=== PATIENT | male | born 1945 | race Caucasian/White ===

== ENCOUNTER 2016-12-26 00:42 | Day surgery (SDC) | payer OTHER ==
[~2016-12-26] VITALS: Ht 175.3 cm; Wt 66.9 kg
[2016-12-26] VITALS (10 sets, daily range): BP systolic 130–180; BP diastolic 61–84; PULSE 56–64; RESP 16–18; O2SAT 95–98
[~2016-12-26 00:42] MED LIST: AMLO10TA3 PO; ATOR80TA PO; CINN500C14 PO; CLOP75TA28 PO; FERR325C PO; GLUC1TAB20 PO; INSU100I18 SUBQ; INSU100V7 SUBQ; ISOS30TA4 PO; LOSA100T29 PO; [UNRECOGNIZED DRUG - CODE] PO
[2016-12-26 12:16] LABS: BASOPHILS % (AUTO) 0.3 % (0-3); EOSINOPHILS % (AUTO) 3.5 % (0-5); MONOCYTES % (AUTO) 7.1 % (4-12); Mean Corpuscular Hemoglobin 31.2 pg (27.0-35.0); Mean Corpuscular Volume 92.7 fL (81-100); NEUTROPHILS % (AUTO) 60.9 % (40-74); Platelet Count 289 bil/L (150-400)
[2016-12-26 12:29] LABS: INR 0.95 ratio
[2016-12-26] MEDS ORDERED: 0.9% Sodium Chloride 250 ML ONE (14:52)
[2016-12-26] MEDS ORDERED: Heparin 5,000 Units/500 mL NS Premix IV ONE (14:52)
[2016-12-26] MEDS ORDERED: Vancomycin 1,000 mg Inj ONE (14:53)
[2016-12-26] MEDS ORDERED: Bupivacaine-MPF 0.5% 30 mL Inj ONE (14:53)
[2016-12-26] MEDS ORDERED: Vancomycin 1,000mg/200 mL NS IV ONE (14:56)
[2016-12-26] MEDS ORDERED: fentaNYL-PF 50 mCg/mL 2 mL Inj ONE (15:44)
[2016-12-26] MEDS: 0.9% Sodium Chloride 1,000 ML IV SCH (16:43)
[2016-12-26] MEDS ORDERED: Ondansetron 2 mg/mL 2 mL Inj IVPUSH PRN (16:45)
[2016-12-26] MEDS ORDERED: HYDROcodone-APAP 5-325 mg Tablet PO PRN (16:45)
--- NOTE | 2016-12-26 18:01 | DRSVH ---
PROCEDURE: X-RAY CHEST ONE VIEW, PORTABLE ([id number]) INDICATIONS: For new leads placed TECHNIQUE: One view of the chest was acquired. COMPARISON: [facility], , CHEST 2 VIEW, 10/19/2016, 8:34. FINDINGS: Surgical changes and devices: Left-sided pacer. Lungs and pleura: No pleural effusions or pneumothorax. Lungs are clear. Mediastinum: Mediastinal contours appear normal. Heart size is normal. Bones and chest wall: No suspicious bony lesions. Overlying soft tissues appear unremarkable. IMPRESSION: No acute process. Dictated by: Arik Lucia M.D. on 12/26/2016 at 17:59 Approved by: Arik Lucia M.D. on 12/26/2016 at 18:00
--- NOTE | 2016-12-26 20:06 | NUR ---
Pt transferred to PCC room 2026, VSS, Lt upper chest dressing CDI with no bleeding/hematoma noted. Report and pt handoff given to Larisa CHAPMAN.
[2016-12-26] MEDS ORDERED: Glucose 40% Oral Gel 15 Gm Tube PO PRN (21:15)
[2016-12-26] MEDS: Insulin LISPRO 300 Unit/3 mL Inj SUBQ SCH (21:28)
[2016-12-26 22:14] LABS: APPEARANCE,URINE CLEAR (CLEAR,HAZY); COLOR,URINE STRAW (YELLOW); OCCULT BLOOD,URINE NEGATIVE (NEGATIVE); PH,URINE 7.5 (5.0-8.0); UROBILINOGEN,URINE NORMAL (NORMAL)
--- NOTE | 2016-12-27 02:24 | OP ---
[address] [address] OPERATIVE REPORT PATIENT: GENE HARRISON : 1945 MR#: [id number] ADMIT: 12/26/2016 JOB ID: [id number] DATE OF SURGERY: 12/26/2016 PREOPERATIVE DIAGNOSIS(ES): Mobitz II AV block. POSTOPERATIVE DIAGNOSIS(ES): Mobitz II AV block. PROCEDURES PERFORMED: 1. Dual-chamber pacemaker implantation. 2. Fluoroscopy. SURGEON: Ady Rizo MD. CLAM GROWER: Safia . IMPLANTED DEVICES: 1. [employer] pulse generator, model [id number], serial #[id number]. 2. Right atrial lead [employer], LPA 1200M, 52 cm, serial #[id number]. 3. RV lead [employer], LPA 1200M, 58 cm, serial #[id number]. ANESTHESIA: Bolus dosing of Versed and fentanyl . INDICATION: The patient is a pleasant 71-year-old man with recently diagnosed atrial fibrillation, and now Mobitz II AV block as well. After discussion of the risks and benefits of pacemaker implantation, he opted to proceed. PROCEDURAL DESCRIPTION: Following informed signed consent, the patient was taken to the EP Laboratory in where he was prepped and draped in usual sterile fashion. The left infraclavicular region was infiltrated with 40 cc of a 50/50 mixture of bupivacaine and lidocaine. Once adequate anesthesia had been achieved, a 3 cm transverse . Dissection was carried down to the pectoralis fascia and a pocket was then fashioned using a combination of electrocautery and blunt dissection. Once adequate hemostasis had been achieved, access was gotten into the left axillary vein with a micropuncture needle to deploy two 0.035 mm J guidewires. Over the first of these, an 8-Australian tear-away sheath was advanced. and ultimately the RV apex. The lead was affixed in position using its associated active fixation screw. It was connected to the external analyzer. The R waves, impedance, capture was checked to 10 V and stimulation. Attention was now paid to atrial lead. Over the previously deployed J guidewire, another 8-Australian tear-away sheath was advanced. Once lead was advanced to the right atrial appendage. It was affixed in position using its associated active fixation screw. The lead was connected to external analyzer P waves, impedance, capture threshold was checked to 10 V and there was no evidence of diaphragmatic stimulation. Once the position and redundancy of both leads were confirmed with multiple fluoroscopic views, the leads were anchored to the prepectoral fascia using their associated anchoring sleeves and two heavy Ethibond sutures. The pocket was then copiously irrigated with antibiotic solution. Leads were connected to a generator. Leads were placed in the pocket. to the floor of the pocket using 1-0 Ti-Cron suture. The incision was then closed with running layers of absorbable suture. The wound was dressed with skin adhesive and a small dressing. At the end of the procedure, the needle, sponge, and instrument counts were reported correct. COMPLICATIONS: None. ESTIMATED BLOOD LOSS: Negligible. DEVICE MEASURED DATA: 1. Right atrial lead 4.2 mV, 450 ohms, 0.5 V at 0.4 msec. 2. RV lead greater than 12 mV, 450 ohms, 0.75 V at 0.4 msec. FINAL PROGRAMINGS: DDDR 60-130 beats per minute. IMPRESSION: Successful dual-chamber pacemaker implantation. PLAN: 1. Stat portable chest x-ray. 2. PA and lateral chest x-ray. 3. Ancef through tomorrow. 4. Doxycycline x7 days starting tomorrow. 5. Wound check in one week. , Ady Rizo MD, electrophysiology attending was present for and supervised/performed all aspects of this procedure.
[2016-12-27] MEDS: 0.9% Sodium Chloride 1,000 ML IV SCH (02:43)
[2016-12-27 03:13] VITALS: BP 169/66; PULSE 63; RESP 17; O2SAT 96
[2016-12-27] MEDS ORDERED: Vancomycin Inj 1,000 MG in IV Premix 1 EACH IV ONE (04:45)
--- NOTE | 2016-12-27 04:48 | NUR ---
Cardiac: Pacer site asymptomatic. Left arm in slight overnight, reviewed with pt left arm precautions. Tele A paced 60s. pt denies any pain. BP HTN , SBP 160s. Pt sleeping intermittently. Care ongoing.
[2016-12-27] MEDS ORDERED: Isosorbide Mononitrate 30 mg ER24 Tablet PO SCH (07:30)
--- NOTE | 2016-12-27 07:30 | NUR ---
Pacer site Pacer site covered with gauze. Pt denies chest pain. All pulses palpable. Care continues.
[2016-12-27] MEDS ORDERED: Omega-3 Fatty Acids 1,000 mg Capsule PO SCH (08:30)
[2016-12-27 08:35] VITALS: BP 181/89; PULSE 60; RESP 18; O2SAT 99
[2016-12-27 08:44] VITALS: BP 169/88
--- NOTE | 2016-12-27 09:08 | PCM.DIMED ---
Discharge Instructions Date of Service Dec 27, 2016 Dates of Hospitalization Discharge Diagnosis Discharge Diagnosis Mobitz II, 2nd Degree AV Block Paroxysmal AFib Diabetes Diet Heart Healthy, Diabetic Activity Other (Do not extend left elbow high above shoulder for one month. Do not lift , push or pull more than 10 lbs with the left arm for one month.) Call your provider Fever or Chills, Bleeding, Excessive diarrhea Patient Instructions Follow-up in: 1 week Mid-level Provider (F9): Ananth March PA-C Follow-up with Mid-level in: 6 weeks Ananth March PA-C Dec 27, 2016 09:08
[2016-12-27] MEDS ORDERED: CEPH500C PO (09:11)
[2016-12-27 09:18] VITALS: BP 174/82; PULSE 62; RESP 17; O2SAT 97
--- NOTE | 2016-12-27 10:02 | DIS ---
[address] [address] DISCHARGE SUMMARY PATIENT: GENE HARRISON : 1945 MR#: [id number] ADMIT: 12/26/2016 JOB ID: [id number] DIS: 12/27/2016 REASON FOR ADMISSION: Pacemaker implant. CHIEF COMPLAINT: Bradycardia and fatigue. BRIEF HISTORY: The patient is a pleasant, 71-year-old man, with preserved LV function, who recently had a stroke and now has newly diagnosed paroxysmal atrial fibrillation. Monitoring of his ECG showed intermittent periods of Mobitz-II AV block in the middle of the day, and he was not on any AV masha blocking agents. He has had fatigue and bradycardia. His ECG shows sinus rhythm with left anterior fascicular block and intermittent Mobitz-II AV block. He was advised of the recommendation for a pacemaker to prevent syncope and was admitted for that purpose. COURSE IN HOSPITAL: The patient was admitted to the [facility] and taken to the optical laboratory manager, where he received a dual-chamber cardiac pacemaker without incident. He was taken back to the optical laboratory manager for recovery from sedation and then transferred up to the [facility] for overnight observation and telemetry monitoring, and he did well. In the morning, his pacemaker site was closed and dry, and there was no hematoma. Device testing showed excellent capture and sensing thresholds for both leads and 74% pacing. Chest x-ray showed good lead positions and no pneumothorax. He felt well for discharge home, had no complaints of lightheadedness, dyspnea or excessive pain. DISPOSITION: The patient is discharged home in good condition with a followup appointment at the [facility] office in one week. He was advised to continue his heart healthy and diabetic diet, and to take medications as prescribed. He may shower tomorrow. He was asked not to extend his left elbow above his shoulder for one month, and not to lift, push or pull more than 10 pounds with the left arm for one month. DISCHARGE MEDICATIONS: 1. Cephalexin 500 mg b.i.d. for one week. 2. Amlodipine 10 mg daily. 3. Atorvastatin 80 mg daily. 4. Cinnamon bark 1000 mg b.i.d. 5. Clopidogrel 75 mg daily. 6. Ferrous sulfate 325 mg daily. 7. Glucosamine chondroitin tablets, 1 b.i.d. 8. Insulin glargine 22 units subcu as directed. 9. Insulin lispro 4 units subcu as directed. 10. Isosorbide mononitrate ER 30 mg daily. 11. Losartan 100 mg daily. 12. Willis-3 fish oil soft gel 1 g b.i.d. FINAL DIAGNOSES: 1. Intermittent Mobitz-II atrioventricular block. 2. Fatigue. 3. Diabetes mellitus. 4. Paroxysmal atrial fibrillation.
[2016-12-27] MEDS: Insulin LISPRO 300 Unit/3 mL Inj SUBQ SCH (10:14)
[2016-12-27 10:34] VITALS: PULSE 62
--- NOTE | 2016-12-27 10:37 | DRSVH ---
PROCEDURE: X-RAY CHEST, TWO VIEWS ([id number]) INDICATIONS: For new lead placement TECHNIQUE: 2 views of the chest were acquired. COMPARISON: None. FINDINGS: Surgical changes and devices: Stable left pacer. Lungs and pleura: No pleural effusions or pneumothorax. Lungs are clear. Mediastinum: Mediastinal contours are normal. Heart size is normal. Bones and chest wall: No suspicious bony abnormalities. Soft tissues appear unremarkable. IMPRESSION: Stable chest post pacer placement. Dictated by: Andrew Quinteros [facility] Interpreted: Sy Nagel MD on 12/27/2016 at 10:36 Transcribed by: BLAS on 12/27/2016 at 10:36 Approved by: Sy Nagel M.D. on 12/27/2016 at 15:40
--- NOTE | 2016-12-27 12:37 | NUR ---
Discharge Pt discharged at approximately 1245 to home with . Pt given educational material for Pacemaker and Pacemaker Booklet. Pacemaker ID card with instructions given to pt. New prescription for Cephalexin sent to Pharmacy per MD. Next dose to be taken for all medications clearly written and dated, Bilateral IVs DC with catheter intact, Tele DCd monitor worker notified. Patient acknowledged and understood all information. Pt left with all personal belongings. Escorted by LIGHTER CAPTAIN in wheelchair to door.
== END 2016-12-27 12:40 | disposition home or self-care (01) ==
LOC: SOUO 00:42 → PCC 19:43 → SOUO 12-27 12:40
PROVIDERS: ATTEND Internal Medicine Cardiovascular Disease
DX: I44.1 Atrioventricular block, second degree (principal); I48.0 Paroxysmal atrial fibrillation; I69.322 Dysarthria following cerebral infarction; I44.4 Left anterior fascicular block; E11.9 Type 2 diabetes mellitus without complications; N40.1 Benign prostatic hyperplasia with lower urinary tract symptoms; Z87.440 Personal history of urinary (tract) infections; Z79.4 Long term (current) use of insulin; Z79.02 Long term (current) use of antithrombotics/antiplatelets
CPT/HCPCS: 33208; 36415; 71010; 71020; 80048; 81000; 85025; 85610; 93005; 99152; 99153; C1769; C1785; C1892; C1898; J1644; J1815; J2250; J3010; J3370; J7050

== ENCOUNTER 2017-03-05 08:35 | Day surgery (SDC) | payer OTHER ==
[~2017-03-05] VITALS: Ht 175.3 cm; Wt 73.5 kg
[~2017-03-05 08:35] MED LIST changes: +0.9% Sodium Chloride 1,000 ML IV SCH; +Sodium Chloride LOK Flush 10 mL Syringe IV PRN; +WARF5TAB7 PO; +fentaNYL-PF 50 mCg/mL 2 mL Inj IVPUSH PRN
[2017-03-05 08:52] VITALS: BP 166/61; PULSE 67; RESP 16; O2SAT 97
--- NOTE | 2017-03-05 10:54 | PCM.ENDEGD ---
EGD Date of Service: Mar 05, 2017 Physician Mauro Thompson MD Pre Procedure Diagnosis: Hematemesis Post Procedure Dx & Findings: Erosive gastropathy possible Jackson's duodenitis Procedure Esophagogastroduodenoscopy PROCEDURE IN DETAIL: After proper sedation, Olympus video endoscope was inserted into patient's mouth and esophagus was successfully intubated. Scope introduced esophagus. Esophagus showed normal shiny whitish mucosa consistent with squamous cell component. Z line was at approximately 40 cm from the incisors. There was about 2-3 cm of irregular Z line with salmon-colored mucosa. Narrow banding done. No ulcer mass erosion nodule noted. Scope further advanced to the stomach. The entire stomach had some atrophy as well as edema redness and speck of dry old blood. Cardia fundus body antrum pylorus were all visualized. Retroflexion was done. Stomach was easily inflated and deflatable using air. Scope further events to the distal duodenum. Duodenum revealed normal villous structures with normal appearing folds without any mass ulcer erosion. However in the duodenal bulb and the first pass, some evidence of inflammation and edema was noted. Patient started struggling and grabbing for the scope. Therefore biopsies could not be safely taken. Impression Possible Jackson's Diffuse erosive gastropathy Duodenitis Recommendation Stop NSAIDs PPI EGD with anesthesia Presedation Assessment Risks and Benefits Informed consent was obtained from the patient after all risks and benefits including but not limited to drug reaction, infection, pain, bleeding, perforation, as well as alternatives were discussed. Patient monitoring Continuous pulse oximetry, cardiac monitoring, blood pressure monitoring, IV access, and oxygen at 2L per nasal cannula. Periprocedural Fentanyl: Fentanyl 150mcg Incrementally Midazolam: Midazolam 7mg Incrementally Complications There were no periprocedural complications identified. Post Procedure Plan Post Procedure Recommendations 1. Restrict activities today. 2. Resume normal activities in the morning. 3. Resume medications. 4. GERD behavioral modification: - Avoid fatty, acidic, spicy, large meals - Do not lie down after meals - Do not eat or drink anything for at least 2 1/2 hours before going to bed at night - Discontinue tobacco and alcohol - Decrease or avoid caffeine - Avoid chocolate and mints - Decrease weight - Avoid aspirin and non steroidal anti-inflammatory agents (NSAID) such as Aleve, Advil, Mobic, Naproxen, Ibuprofen, etc 5. Add proton pump inhibitor. Take 30 minutes before 1st meal of the day. 6. Patient informed of normal post procedure side effects as bloating, drowsiness, blood streaking in the stool 7. If gastric biopsy reveal H.pylori, continue with appropriate treatment 8. If small bowel biopsy reveals celiac, continue with appropriate treatment 9. Please don't hesitate to call me with any questions Mauro Thompson MD Mar 05, 2017 10:53
--- NOTE | 2017-03-05 10:56 | PCM.ENDCOL ---
Colonoscopy Date of Service: Mar 05, 2017 Physician Mauro Thompson MD Pre Procedure Diagnosis: Screening Post Procedure Dx & Findings: Polyp hemorrhoids diverticula Procedure Colonoscopy PROCEDURE IN DETAIL: Prep adequate Withdrawal time 15 minutes After unremarkable rectal examination the Olympus video colonoscope was inserted patient's anal canal and was advanced to cecum. Landmarks were identified including the ileocecal valve and appendiceal orifice. Scope was withdrawn systematically. Visualized colonic mucosa showed healthy shiny mucosa with normal healthy-appearing vasculature. In the ascending colon, there was a 1 mm polyp which was removed completely using cold forceps. In the transverse colon there were 2 polyps. These are 2 mm in size and they were both removed completely using cold snare. In the descending colon there was a 2 mm polyp which was removed completely using cold snare. In the sigmoid colon, there was a 3 mm polyp which was removed completely using cold snare. In the sigmoid colon, there were several small diverticuli. In the rectum retroflexion was done which showed hemorrhoids. Anal canal was inspected carefully on the way out and hemorrhoids noted. Impression Polyps 5 status post complete removal Diverticuli Hemorrhoids Recommendation Repeat colonoscopy 3 years Diverticular diet Presedation Assessment Risks and Benefits Informed consent was obtained from the patient after all risks and benefits including but not limited to drug reaction, infection, pain, bleeding, perforation, as well as alternatives were discussed. Patient monitoring Continuous pulse oximetry, cardiac monitoring, blood pressure monitoring, IV access, and oxygen at 2L per nasal cannula. Complications There were no periprocedural complications identified. Post Procedure Plan Post Procedure Recommendations 1. Restrict activities today. 2. Resume normal activities in the morning. 3. Resume medications. 4. Patient informed of normal post procedure side effects as bloating, drowsiness, blood streaking in the stool. 5. average risk CRCS. If colon polyps come back as: -Hyperplastic- can repeat colonoscopy in 10 years -Tubular adenoma- repeat colonoscopy in 5 years -Tubulovillous/villous adenoma- repeat colonoscopy in 3 years -If any dysplasia- return to clinic as soon as possible 6. Please don't hesitate to call me with any questions. Mauro Thompson MD Mar 05, 2017 10:56
[2017-03-05 10:57] VITALS: BP 121/57; PULSE 60; RESP 17; O2SAT 97
[2017-03-05 11:05] VITALS: BP 113/58; PULSE 61; RESP 17; O2SAT 97
[2017-03-05 11:15] VITALS: BP 113/58; PULSE 60; RESP 15; O2SAT 96
== END 2017-03-05 23:59 | disposition home or self-care (01) ==
LOC: END 08:35
PROVIDERS: ATTEND Internal Medicine
DX: Z12.11 Encounter for screening for malignant neoplasm of colon (principal); K57.30 Diverticulosis of large intestine without perforation or abscess without bleeding; K64.8 Other hemorrhoids; K31.9 Disease of stomach and duodenum, unspecified; K29.80 Duodenitis without bleeding; K21.9 Gastro-esophageal reflux disease without esophagitis; D64.9 Anemia, unspecified; I10 Essential (primary) hypertension; I48.0 Paroxysmal atrial fibrillation; Z95.0 Presence of cardiac pacemaker; I44.1 Atrioventricular block, second degree; E11.9 Type 2 diabetes mellitus without complications; N40.1 Benign prostatic hyperplasia with lower urinary tract symptoms; R33.9 Retention of urine, unspecified; Z79.4 Long term (current) use of insulin; Z79.01 Long term (current) use of anticoagulants; Z79.02 Long term (current) use of antithrombotics/antiplatelets
CPT/HCPCS: 43235; 45380; 45385; 99153; G0500; J2250; J3010; J7030

== ENCOUNTER → 2017-04-26 | Day surgery (SDC) | payer OTHER ==
[~2017-04-26] VITALS: Ht 175.3 cm; Wt 74.8 kg
[~2017-04-26] MED LIST changes: -0.9% Sodium Chloride 1,000 ML IV SCH; +ASCO500C6 PO; +CARV3.122 PO; +CHOL200047 PO; -CLOP75TA28 PO; +CYAN500 SQ; +Ketamine 10 mg/mL 20 mL Inj ONE; +Lactated Ringer's 1,000 ML IV ONE; +Lactated Ringer's 1,000 ML IV SCH; +MetoCLOpramide 5 mg/mL 2 mL Inj IVPUSH PRN; +Ondansetron 2 mg/mL 2 mL Inj IVPUSH PRN; +Propofol 10,000 mCg/mL 20 mL Inj ONE; -Sodium Chloride LOK Flush 10 mL Syringe IV PRN; -fentaNYL-PF 50 mCg/mL 2 mL Inj IVPUSH PRN
--- NOTE | 2017-04-26 07:41 | PCM.HPANE ---
Patient Data Surgeon Admitting Provider: Attending Provider:Mauro Thompson MD Primary Care Physician:Nruia Whelan DO Other Provider:Charlette Love Anesthesia Reason for Visit Gastrointestinal Hemorrhage Ht/WT & BMI Body Mass Index Allergies Coded Allergies: atenolol (Verified Allergy, Unknown, 03/02/17) ciprofloxacin (Verified Allergy, Unknown, 03/02/17) Past Anesthesia History Anesthesia History: Denies:: Abnormal Airway, Anesthesia Reactions, Difficult Intubation, Fam Anesthesia Reaction, Fam Malignant Hypertherm, Malignant Hyperthermia Diabetes History Hx Diabetes?: Yes Glycemic Control: Insulin Dependent Current Bedside Blood Glucose: 132 MRSA MRSA: No Medications Hypertension Medication: Yes Home Meds Incl Beta Gris: No Reported Medications Cholecalciferol (Vitamin D3) (Vitamin D3)2,000 Unit Capsule2,000 Unit PO DAILY 04/26/17 Carvedilol 3.125 Mg Tablet3.125 Mg PO BID Ref 0 04/26/17 Ascorbic Acid (Vitamin C)500 Mg Capsule.er500 Mg PO DAILY 04/24/17 Cinnamon Bark (Cinnamon)500 Mg Capsule1,000 Mg PO DAILY 04/24/17 Cyanocobalamin (Vitamin B12)500 Mcg Tablet1,000 Mcg SQ Monthly 04/24/17 Warfarin Sodium 5 Mg Tablet5 Mg PO DAILY 30 Days Ref 0 03/02/17 Losartan Potassium 100 Mg Zrohzn998 Mg PO DAILY 12/25/16 Insulin Glargine (Lantus U100 Insulin Vial)100 Unit/Ml Vial22 Unit SUBQ DIRECTED #1 VIAL Ref 0 12/25/16 Isosorbide MN ER 30 Mg Tab.er.24h30 Mg PO DAILY 12/25/16 Ferrous Sulfate (Iron)325 Mg Capsule.erUnknown Dose PO DAILY 12/25/16 Insulin Lispro (HumaLOG U100 Insulin Pen)100 Unit/1 Ml Insuln.pen4 Unit SUBQ DIRECTED #1 PENINJ Ref 0 Blood Sugar Lispro Correction <151 0 units 151-175 1 unit 176-200 2 units 201-225 3 units 226-250 4 units 251-275 5 units 276-300 6 units 301-325 7 units 326-350 8 units 351-375 9 units 376-400 10 units >400 12 units Check blood sugars before meals and at bedtime. Use correction factor only before meals. 12/25/16 Gluc Ary/Chondro Ray A/Vit C/Mn (Glucosamine Chondroitin Tab)1 Each Tablet1,000 Mg PO BID 12/25/16 Stevinson-3/Dha/Epa/Fish Oil (Fish Oil 1,000 mg Softgel)1,000 Mg (120 Mg-180 Mg) Capsule1,000 Mg PO BID 12/25/16 Atorvastatin (Lipitor)80 Mg Gsotyv19 Mg PO DAILY Ref 0 12/25/16 Amlodipine 10 Mg Osgels52 Mg PO DAILY Ref 0 12/25/16 History History of ENT Problems?: No HEENT History: Denies:: Abnormal Airway Cataracts Difficult Intubation Dysphagia Glaucoma Hearing Problem Sinus Problem TMJ Denture Type: None Teeth Condition: Within Normal Limits Hx of Heart Problems?: Yes Cardiovascular History: Positive for:: AICD Atrial Fibrillation Chest Pain Hypertension Irregular Heartbeat (SB w/ mobitz type II) Pacemaker Hx of Respiratory Problem?: Yes Respiratory History: Positive for:: COPD Cough Pneumonia Hx Neurologic Problems?: Yes Neurological History: Positive for:: CVA Hx of GI Problems?: Yes Hx of Problems?: No Hx Musculoskeletal Problems?: No Hx of Psycho/Social Problems?: No Hx Surgeries?: Yes (bladder, multiple) Hx Any Other Health Problems?: Yes Other History: Positive for:: Hospitalization History Blood Transfusions: Denies:: Blood Transfusions Hx Diabetes: Yes Hx Alcohol Use: NoHx Substance Use: Yes (marijuana)Have You Smoked inLast 12 mo: No Stop/Bang Treated for Sleep Apnea?: No Do You Have a CPAP Machine?: No SIMIN Risk Assessment: Low Risk, <3 Yes Risk Assessment Category Category 1A: Patient has history of documented sleep apnea, and HAS NOT received any narcotic, sedative or anesthesia administration during this stay. Category 1B: Patient has history of documented sleep apnea, and HAS received any narcotic , sedative or anesthesia administration during this stay Category 2: Patient has SUSPECTED Obstructive Sleep Apnea, and HAS received any narcotic , sedative or anesthesia administration during this stay. Category 3: Patient has SUSPECTED Obstructive Sleep Apnea and HAS NOT received narcotic, sedative or anesthesia administration during this stay. Category 4: Outpatient in Procedural Areas with known sleep apnea or who screen positive for High Risk via the STOP/BANG questionnaire. Exam Exam General Appearance: Alert, Oriented X3, Cooperative, No Acute Distress HEENT/AIRWAY: MP 2 Lungs: Clear to Auscultation, Normal Air Movement Heart: Exam Unremarkable, Regular Rate/Rhythm, No Murmurs/Rubs/Gallops Plan Impression Patient chart reviewed, patient interviewed and anesthestic plan with risks, benefits, and alternatives discussed, and informed consent obtained. ASA Physical Status: ASA2 Mod Systemic Disease Anesthetic Plan: MAC Bene/Risks/Altern/Consents: Yes HP Complete Prior to Induction: Yes Colt Gu MD Apr 26, 2017 07:41
[2017-04-26 10:17] VITALS: BP 156/80; PULSE 60; RESP 16; O2SAT 98
--- NOTE | 2017-04-26 11:25 | PCM.ENDEGD ---
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 Scope introduced esophagus. Esophagus showed normal shiny whitish mucosa consistent with squamous cell component. Z line was at 40 cm from the incisors. There was 2 cm length of salmon-colored mucosa. Irregular Z line consistent with Jackson's esophagus. Inflammation noted as well. 4 quadrant biopsies obtained every 2 cm for Jackson 's protocol. Narrow banding done. Biopsy of the esophagitis done and placed in the same bottle as the Jackson's. No mass erosion nodule ulcer noted. 3 cm hiatal hernia noted. No further advanced to the stomach. Stomach showed irritation edema and redness consistent with gastritis with erosion. There was one 1 cm superficial ulcer. Biopsies were done and all the sites. They were placed in the same bottle.. Cardia fundus body antrum pylorus were all visualized. Retroflexion was done. Stomach was easily inflated and deflatable using air. Scope further advanced to the distal duodenum. Duodenum revealed normal villous structures with normal appearing folds however there were a few 1 mm or 2 mm isolated redness consistent with isolated duodenitis. Biopsies were done. 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 Presedation Assessment Risks and Benefits Informed consent was obtained from the patient after all risks and benefits including but not limited to drug reaction, infection, pain, bleeding, perforation, as well as alternatives were discussed. Patient monitoring Continuous pulse oximetry, cardiac monitoring, blood pressure monitoring, IV access, and oxygen at 2L per nasal cannula. Complications There were no periprocedural complications identified. Post Procedure Plan Post Procedure Recommendations 1. Restrict activities today. 2. Resume normal activities in the morning. 3. Resume medications. 4. GERD behavioral modification: - Avoid fatty, acidic, spicy, large meals - Do not lie down after meals - Do not eat or drink anything for at least 2 1/2 hours before going to bed at night - Discontinue tobacco and alcohol - Decrease or avoid caffeine - Avoid chocolate and mints - Decrease weight - Avoid aspirin and non steroidal anti-inflammatory agents (NSAID) such as Aleve, Advil, Mobic, Naproxen, Ibuprofen, etc 5. Add proton pump inhibitor. Take 30 minutes before 1st meal of the day. 6. Patient informed of normal post procedure side effects as bloating, drowsiness, blood streaking in the stool 7. If gastric biopsy reveal H.pylori, continue with appropriate treatment 8. If small bowel biopsy reveals celiac, continue with appropriate treatment 9. Please don't hesitate to call me with any questions Muaro Thompson MD Apr 26, 2017 11:25
[2017-04-26 11:28] VITALS: BP 140/63; PULSE 62; O2SAT 97
[2017-04-26 11:45] VITALS: BP 155/81; PULSE 59; O2SAT 100
--- NOTE | 2017-04-27 09:30 | PCM.ANEP1 ---
Post Anesthesia PACU Phase 1 Assessment Anesthetic Administered: MAC Level of Alertness: Awake, talking FRANKLIN's with Equal Strength: Yes Pain: No Nausea or Vomiting: No CV Function & Hydration Stable: Yes Airway Device: none Lungs: Clear to Auscultation, Normal Air Movement Dermatome Level: Full Sensation PACU Phase 2 Assessment Complications: No Follow up Care: No Patient Instructions Provided: N/A Colt Gu MD Apr 27, 2017 09:30
--- NOTE | 2017-04-30 16:46 | PATH ---
SURGICAL PATHOLOGY Attending Physician:Mauro Thompson M.D. CASE STATUS: Signed Out PATIENT NAME: GENE HARRISON PID: [id number] : 1945 DATE COLLECTED:04/26/2017 21:28 SPECIMEN: 1: Duodenum, Biopsy 2: Gastric, Biopsy 3: Esophagus, Biopsy CLINICAL HISTORY: 1). DUODENUM BIOPSY 2). GASTRIC BIOPSY, RULE OUT H.PYLORI 3). DISTAL ESOPHAGUS BIOPSY FINAL DIAGNOSIS: 1. Duodenum, Biopsy: Duodenal mucosa with no diagnostic abnormality. Negative for active inflammation, features of sprue, dysplasia or malignancy. 2. Stomach, Biopsy: Gastric antral and body mucosa with mild chronic gastritis. Helicobacter organisms not identified. Negative for intestinal metaplasia, dysplasia, and malignancy. 3. 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 Negative for dysplasia or malignancy. ICD10: K92.0 GROSS DESCRIPTION: Received three formalin-filled containers, each labeled with the patient' s name. 1. Received in formalin, labeled with the patient' s name and "duodenum biopsies", are two fragments of garcia, soft tissue ranging from 0.1 x 0.1 x 0.1 cm to 0.1 x 0.1 x 0.1 cm. The fragments are totally submitted in cassette 1A. 2. Received in formalin, labeled with the patient' s name and "gastric biopsies", are two fragments of garcia, soft tissue ranging from 0.4 x 0.2 x 0.2 cm to 0.4 x 0.3 x 0.1 cm. The fragments are totally submitted in cassette 2A. 3. Received in formalin, labeled with the patient' s name and "distal esophagus biopsies", are four fragments of garcia, soft tissue ranging from 0.1 x 0.1 x 0.1 cm to 0.3 x 0.2 x 0.1 cm. The fragments are totally submitted in cassette 3A. [id number]) ICD-9 CODES: CPT CODES: 1: 95977 2: 88112 3: 93742 Electronically Signed Out Navid Miner MD, Ph.D. [facility] [address] [place] [address], [place] [address] Technical component performed at [facility], [place], [address], [place], [address]
== END | disposition home or self-care (01) ==
LOC: END 01:24
PROVIDERS: ATTEND Internal Medicine
DX: K29.50 Unspecified chronic gastritis without bleeding (principal); K22.70 Barrett's esophagus without dysplasia; K20.9 Esophagitis, unspecified; K44.9 Diaphragmatic hernia without obstruction or gangrene; K29.80 Duodenitis without bleeding; I48.0 Paroxysmal atrial fibrillation; Z95.0 Presence of cardiac pacemaker; I44.1 Atrioventricular block, second degree; E11.9 Type 2 diabetes mellitus without complications; N40.1 Benign prostatic hyperplasia with lower urinary tract symptoms; R33.9 Retention of urine, unspecified; Z79.4 Long term (current) use of insulin; Z79.01 Long term (current) use of anticoagulants
CPT/HCPCS: 43239; J2704; J7120